=== PATIENT | female | born 1965 | race Caucasian/White ===

== ENCOUNTER 2017-08-18 00:34 | Observation (INO) ==
--- NOTE | 2017-08-18 01:06 | Emergency Department Note ---
Disposition Clinical Impression: Dehydration, Gastroenteritis, SHANIKA (acute kidney injury), Metabolic alkalosis, Hypokalemia Disposition: Admitted As Inpatient Condition: Good Referrals: Rina Fuentes CNP [Primary Care Provider] - Forms: ED Satisfaction Letter Nausea/Vomiting/Diarrhea HPI - General Chief complaint: ED Nausea/Vomiting/Diarrhea Stated complaint: vomiting Time Seen by Provider: 08/18/17 00:52 Source: patient Mode of arrival: private vehicle Limitations: no limitations Nursing Notes Reviewed: Yes Vital Signs Reviewed: Yes - History of Present Illness HPI Narrative: Patient presents to the ED complaining of nausea, vomiting, back pain and headache. States vomiting first started 2 days ago and lasted for approximately 24 hours, ending around noon yesterday. States she was vomiting up to 2 times an hour during this time. No diarrhea. Denies any blood in her vomit. States she has also had some intermittent upper abdominal pain that is aching in nature since she started vomiting. She rates it a 3 out of 10. This evening the vomiting started again around midnight and she has had 2 episodes which is what brought her into the ED. States that she fell yesterday around 6: 30, landing on her buttocks and has had back pain in her sacrum since that time. States she has felt generally weak and her legs simply gave way. There was no antecedent lightheadedness, dizziness, chest pain or shortness of breath. She did not strike her head or lose consciousness in the fall. No numbness, tingling or weakness in her legs. She had a normal bowel movement today. No URI symptoms. No urinary symptoms. No recent travel or sick contacts. States her blood sugar was 354 at 7 PM. She has not taken any of her meds today because of her vomiting. - Related Data Home Medications Medication Instructions Recorded Confirmed Atorvastatin [Lipitor] 10 mg PO HS 01/01/17 08/18/17 Glimepiride [Amaryl] 2 mg PO 0800 01/01/17 08/18/17 Insulin Glargine/Lixisenatide 45 unit SQ DAILY 01/01/17 08/18/17 [Soliqua 100 Unit-33 Mcg/ml Pen] Lisinopril [Zestril] 20 mg PO DAILY 01/01/17 08/18/17 Allergies Allergy/AdvReac Type Severity Reaction Status Date / Time No Known Allergies Allergy Verified 01/01/17 08:36 Constitutional: Reports: weakness. Denies: fever, chills, weight change Eyes: Denies: eye pain, eye discharge, vision change ENT ED: Denies: ear pain, throat pain, dental pain, hearing loss, epistaxis, congestion, dysphagia Cardiovascular: Denies: chest pain, palpitations, dyspnea on exertion, edema, syncope Respiratory: Denies: cough, dyspnea, wheezes, hemoptysis, stridor Gastrointestinal: Reports: as per HPI, abdominal pain, nausea, vomiting. Denies : diarrhea, constipation, hematemesis, melena, hematochezia Genitourinary: Denies: dysuria, frequency, hematuria, discharge Musculoskeletal: Reports: back pain (sacrum). Denies: neck pain, arthralgia, myalgia Integumentary: Denies: rash, abrasion, lesions Neurological: Reports: headache. Denies: weakness, numbness, paresthesias, confusion, abnormal gait, vertigo Psychiatric: Denies: anxiety, depression, suicidal thoughts, homicidal thoughts , auditory hallucinations, visual hallucinations Endocrine: Denies: fatigue Hematological/Lymphatic: Denies: easy bleeding, easy bruising Allergic/Immunologic: Denies: facial swelling, urticaria Past Medical History - Past Medical History Medical history: Reports: CHF, diabetes, hypertension Surgical history: Reports: other Psychiatric history: Reports: no psych history - Social History Smoking Status: Former smoker Smokeless Tobacco Status: No Alcohol use: Reports: none Drug use: Reports: none Physical Exam - General Limitations: no limitations General appearance: alert, in no apparent distress - Head Head exam: atraumatic, normocephalic, normal inspection - Eye Eye exam: Present: normal appearance, PERRL, EOMI - ENT ENT exam: normal exam, normal oropharynx, mucous membranes moist - Neck Neck exam: Present: normal inspection, full ROM, trachea midline - Chest Chest inspection: Present: normal inspection, symmetric chest wall rise - Respiratory Respiratory exam: Present: normal lung sounds bilaterally - Cardiovascular Cardiovascular exam: Present: regular rate, normal rhythm, normal heart sounds - Abdominal Exam Abdominal exam: Present: soft, tenderness, normal bowel sounds. Absent: distention, guarding, rebound, rigidity Abdominal tenderness: Present: epigastrium, mild - Extremities Exam Extremities exam: Present: normal inspection, full ROM. Absent: tenderness, pedal edema - Back Exam Back exam: Present: normal inspection, full ROM, tenderness (midline sacrum). Absent: CVA tenderness (R), CVA tenderness (L) - Neurological Exam Neurological exam: Present: alert, oriented X3 - Psychiatric Psychiatric exam: Present: normal affect, normal mood - Skin Skin exam: Present: warm, dry, intact, normal color Course Course Narrative: Patient presents to the ED complaining of nausea, vomiting, headache and low back pain. She is afebrile on arrival, nontoxic in appearance and hemodynamically stable. Fingerstick glucose is 372. She does appear dry. Will give IV fluids and medication for nausea. I suspect a simple gastroenteritis but given her diabetes will check routine labs to evaluate for any electrolyte abnormalities or signs of DKA. Will obtain x-ray of the sacrum to rule out any injury. Will give medication for pain. - Reevaluation(s) Reevaluation #1: Laboratory studies showed metabolic alkalosis, hypokalemia and acute kidney injury, all likely due to her excessive vomiting. There is not evidence of DKA. Will give potassium supplementation. Patient has not vomited but does still complain of nausea. We will give Phenergan. Awaiting x-ray results. Will check a lactic acid. Patient will require admission for continued management of her electrolyte abnormalities and SHANIKA. Will check lactic acid to determine if patient is appropriate for this facility or will require transfer. Reevaluation #2: X-ray of sacrum and coccyx is negative. Patient has been given Phenergan but still complains of nausea. She has not had any vomiting. Lactic acid is not elevated. Repeat glucose is 326. I spoke to the hospitalist on-call, Dr. Chandra , who has agreed to admit the patient. We will continue IV fluids and start back on insulin. Vital Signs Temperature 97.2 F L 08/18/17 00:36 Pulse Rate 105 08/18/17 00:36 Respiratory Rate 18 08/18/17 00:36 Blood Pressure 156/79 08/18/17 00:36 O2 Sat by Pulse Oximetry 99 08/18/17 00:36 Temperature 97.2 F L 08/18/17 00:36 Pulse Rate 92 08/18/17 03:08 Respiratory Rate 18 08/18/17 03:08 Blood Pressure 172/86 08/18/17 03:08 O2 Sat by Pulse Oximetry 97 08/18/17 03:08 Oxygen Delivery Oxygen Delivery Room Air Nausea/Vomiting/Diarrhea - Differential Diagnosis Likely: gastroenteritis, dehydration - Medical Records Medical records reviewed: Yes I reviewed the patient's medical records. - Lab Data Lab results reviewed: Yes I reviewed the patient's lab results. Result diagrams: 08/18/17 01:30 08/18/17 01:30 Lab Results 08/18/17 08/18/17 08/18/17 Range/Units 01:30 01:30 01:30 WBC 17.9 H (4.3-11.1) K/mcL RBC 4.37 (3.82-4.97) M/mcL Hgb 13.7 (11.5-15.4) g/dL Hct 38.4 (35.3-44.9) % MCV 87.9 (83.0-100.0) fL MCH 31.4 (28.0-33.3) pg MCHC 35.7 H (31.6-35.5) g/dL RDW 13.6 (11.5-14.5) % Plt Count 512 H (140-400) K/mcL MPV 10.6 (9.4-12.4) fL Immature Gran % 1.5 (0-4) % Seg Neutrophils % 79.2 % Lymphocytes % 9.2 % Monocytes % 9.7 % Eosinophils % 0.1 % Basophils % 0.3 % Neutrophils # 14.2 H (1.6-8.9) K/mcL Lymphocytes # 1.7 (0.6-4.6) K/mcL Monocytes # 1.7 H (0.0-1.3) K/mcL Eosinophils # 0.0 (0.0-0.6) K/mcL Basophils # 0.1 (0.0-0.2) K/mcL VBG pH (7.32-7.42) pH Units VBG pCO2 (41-51) mmHg VBG pO2 (25-50) mmHg VBG HCO3 (21-27) mEq/L Sodium 134 L (136-145) mEq/L Potassium 2.7 L (3.5-4.5) mEq/L Chloride 89 L (98-109) mEq/L Carbon Dioxide 27 (19-29) mEq/L BUN 33 H (7-20) mg/dL Creatinine 2.16 H (0.57-1.11) mg/dL Est GFR ( Amer) 29 L (> 60) Est GFR (Non-Af Amer) 24 L (> 60) BUN/Creatinine Ratio 15 (6-26) Glucose 386 H (70-99) mg/dL Calculated Osmolality 301 H (280-300) Lactic Acid (0.5-2.2) mmol/L Calcium 10.6 (8.6-10.8) mg/dL Total Bilirubin 1.0 (0.2-1.2) mg/dL AST 10 (5-34) Units/L ALT 11 (0-55) Units/L Alkaline Phosphatase 92 (38-126) Units/L Serum Total Protein 8.9 H (6.0-8.3) g/dL Albumin 4.3 (3.5-5.0) g/dL Globulin 4.6 H (2.4-3.5) g/dL Albumin/Globulin Ratio 0.9 L (1.1-2.2) Lipase 36 (8-78) Units/L Beta-Hydroxybutyric Acd 0.45 H (0.02-0.27) mmol/L 08/18/17 08/18/17 Range/Units 01:34 02:33 WBC (4.3-11.1) K/mcL RBC (3.82-4.97) M/mcL Hgb (11.5-15.4) g/dL Hct (35.3-44.9) % MCV (83.0-100.0) fL MCH (28.0-33.3) pg MCHC (31.6-35.5) g/dL RDW (11.5-14.5) % Plt Count (140-400) K/mcL MPV (9.4-12.4) fL Immature Gran % (0-4) % Seg Neutrophils % % Lymphocytes % % Monocytes % % Eosinophils % % Basophils % % Neutrophils # (1.6-8.9) K/mcL Lymphocytes # (0.6-4.6) K/mcL Monocytes # (0.0-1.3) K/mcL Eosinophils # (0.0-0.6) K/mcL Basophils # (0.0-0.2) K/mcL VBG pH 7.56 H (7.32-7.42) pH Units VBG pCO2 35 L (41-51) mmHg VBG pO2 30 (25-50) mmHg VBG HCO3 31 H (21-27) mEq/L Sodium (136-145) mEq/L Potassium (3.5-4.5) mEq/L Chloride (98-109) mEq/L Carbon Dioxide (19-29) mEq/L BUN (7-20) mg/dL Creatinine (0.57-1.11) mg/dL Est GFR ( Amer) (> 60) Est GFR (Non-Af Amer) (> 60) BUN/Creatinine Ratio (6-26) Glucose (70-99) mg/dL Calculated Osmolality (280-300) Lactic Acid 1.8 (0.5-2.2) mmol/L Calcium (8.6-10.8) mg/dL Total Bilirubin (0.2-1.2) mg/dL AST (5-34) Units/L ALT (0-55) Units/L Alkaline Phosphatase (38-126) Units/L Serum Total Protein (6.0-8.3) g/dL Albumin (3.5-5.0) g/dL Globulin (2.4-3.5) g/dL Albumin/Globulin Ratio (1.1-2.2) Lipase (8-78) Units/L Beta-Hydroxybutyric Acd (0.02-0.27) mmol/L - Radiology Data Radiology results reviewed: Yes I reviewed the patient's radiology results. ITS Impressions Sacrum and Coccyx X-Ray 08/18/17 01:34 IMPRESSION: No definite fracture. D/ / Chas Coto MD / Chas Coto MD Interpreting Provider: Chas Coto MD
[2017-08-18] MEDS ORDERED: Ondansetron 4 MG/2 ML VIAL IVP ONE (01:07)
[2017-08-18] MEDS ORDERED: 0.9 % Sodium Chloride 1,000 ML IVC ONE (01:07)
[2017-08-18] MEDS ORDERED: Ketorolac 30 MG/ML VIAL IVP ONE (01:34)
[2017-08-18 01:37] LABS: VBG HCO3 31 mEq/L (21-27); VBG PCO2 35 mmHg (41-51); VBG PH 7.56 pH Units (7.32-7.42); VBG PO2 30 mmHg (25-50)
[2017-08-18 02:08] LABS: Basophils # 0.1 K/mcL (0.0-0.2); Basophils % 0.3 %; Eosinophils % 0.1 %; Hematocrit 38.4 % (35.3-44.9); Hemoglobin 13.7 g/dL (11.5-15.4); Immature Granulocytes % 1.5 % (0-4); Lymphocytes # 1.7 K/mcL (0.6-4.6); Lymphocytes % 9.2 %; Mean Corpuscular HGB Conc 35.7 g/dL (31.6-35.5); Mean Corpuscular Hemoglobin 31.4 pg (28.0-33.3); Mean Corpuscular Volume 87.9 fL (83.0-100.0); Mean Platelet Volume 10.6 fL (9.4-12.4); Monocytes # 1.7 K/mcL (0.0-1.3); Monocytes % 9.7 %; Neutrophils # 14.2 K/mcL (1.6-8.9); Platelet Count 512 K/mcL (140-400); Red Blood Count 4.37 M/mcL (3.82-4.97); Red Cell Distribution Width 13.6 % (11.5-14.5); Segmented Neutrophils % 79.2 %
[2017-08-18 02:09] LABS: Albumin 4.3 g/dL (3.5-5.0); Albumin/Globulin Ratio 0.9 (1.1-2.2); Calcium 10.6 mg/dL (8.6-10.8); Globulin 4.6 g/dL (2.4-3.5); Potassium 2.7 mEq/L (3.5-4.5); Total Protein 8.9 g/dL (6.0-8.3)
[2017-08-18] MEDS ORDERED: 0.9 % Sodium Chloride 1,000 ML IVC SCH (02:30)
[2017-08-18] MEDS ORDERED: *HR* Promethazine 25 MG/ML VIAL IVP ONE (02:35)
[2017-08-18] MEDS ORDERED: *HR* Promethazine 25 MG/ML VIAL IVP PRN ×2 (03:20→03:44)
[2017-08-18] MEDS ORDERED: Naloxone 0.4 MG/ML INJ IVP PRN ×2 (03:20→03:44)
[2017-08-18] MEDS ORDERED: Insulin LISPRO 300 UNITS/3 ML VIAL SQ ONE ×4 (03:32→04:00)
[2017-08-18] MEDS ORDERED: Dextrose Gel 15 GM PO PRN ×2 (03:44)
[2017-08-18] MEDS ORDERED: D5% in Water 1,000 ML IVC PRN (03:44)
[2017-08-18] MEDS ORDERED: *HR* Dextrose 50 % in Water (Syg) 50 ML SYRINGE IVP PRN (03:44)
[2017-08-18] MEDS: 0.9 % Sodium Chloride 1,000 ML IVC SCH ×2 (04:32→12:43)
[2017-08-18] MEDS ORDERED: Ondansetron 4 MG/2 ML VIAL IVP PRN (05:24)
[2017-08-18] MEDS ORDERED: *HR* Glimepiride 2 MG TABLET PO SCH (08:00)
[2017-08-18] MEDS ORDERED: *HR* Promethazine 25 MG/ML VIAL IVP SCH (08:00)
[2017-08-18] MEDS: *HR* Promethazine 25 MG/ML VIAL IVP PRN ×2 (10:01→14:42)
[2017-08-18] MEDS: Insulin LISPRO 300 UNITS/3 ML VIAL SQ SCH ×3 (10:02→17:37)
[2017-08-18] MEDS: Lisinopril 20 MG TABLET PO SCH (10:02)
[2017-08-18 11:57] LABS: Bilirubin,Urine Small (Negative); Blood,Urine Large (Negative); Clarity,Urine Turbid (Clear); Color,Urine Amber (Yellow); Glucose,Urine (UA) >=1000 mg/dL (Normal); Ketones,Urine 15 mg/dL (Negative); Leukocyte Esterase,Urine Small (Negative); Nitrite,Urine Positive (Negative); Protein,Urine >=300 mg/dL (Neg-Trace); Specific Gravity,Urine >= 1.030 (1.010-1.025); Urobilinogen,Urine Normal (Normal)
[2017-08-18 12:07] LABS: Bacteria,Urine Many per hpf (None-Few); RBC,Urine TNTC per hpf (0-3); Squamous Epithelial Cell,Urine Few per lpf (None-Few); WBC,Urine TNTC per hpf (0-3)
[2017-08-18] MEDS: INSULIN GLARGINE SQ SCH (12:45)
[2017-08-18] MEDS: LIXISENATIDE SQ SCH (12:45)
[2017-08-18] MEDS: *HR* HYDROcodone/Acet 5/325 mg TABLET PO PRN ×2 (14:30→21:52)
--- NOTE | 2017-08-18 15:12 | Internal Med History&Physical ---
Date of Encounter: 08/18/17 Time of Encounter: 14:40 Assessment and Plan (1) Gastroenteritis Current visit: Yes Status: Acute She will be given IV fluids and prn antiemetics. Will recheck labs in a.m. (2) UTI (urinary tract infection) Current visit: Yes Status: Acute Will give Rocephin empirically with urine culture pending Qualifiers: Urinary tract infection type: site unspecified Hematuria presence: with hematuria Qualified Code(s): N39.0 - Urinary tract infection, site not specified; R31.9 - Hematuria, unspecified; R31.9 - Hematuria, unspecified (3) SHANIKA (acute kidney injury) Current visit: Yes Status: Acute Probably secondary to vomiting with dehydration. We will give IV fluids and recheck labs. (4) Hypokalemia Current visit: Yes Status: Acute Likely secondary to vomiting. We will give replacement potassium and recheck labs. (5) Hypertension Current visit: Yes Status: Chronic Continue Zestril Qualifiers: Hypertension type: essential hypertension Qualified Code(s): I10 - Essential (primary) hypertension (6) DM type 2 (diabetes mellitus, type 2) Current visit: Yes Status: Acute Continue Soliqua and monitor Accu-Cheks with SSI. 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 Paredes is a 52 year old female who came to emergency room stating she had onset of vomiting the afternoon of August 16. She stated she vomited at least 15 times without any evidence of hematemesis. She had progressive weakness and had a fall at home. When she did not seem improved by the following day she came to emergency room and was found to have hypokalemia and acute renal failure. She was admitted to [facility] floor for ongoing care needs. She denies abdominal pain, fever or diarrhea. She denies disorders of her liver gallbladder or exocrine pancreas. Past Med Surg Social Fam HX - Past Medical History Medical history: CHF, diabetes, hypertension Psychiatric history: no psych history - Past Surgical History Surgical History: other - Social History Smoking Status: Former smoker Smokeless Tobacco Status: No Alcohol use: none Drug use: none Internal Medicine - H&P: Meds Atorvastatin [Lipitor] 10 mg PO HS 01/01/17 [History] Glimepiride [Amaryl] 2 mg PO 0800 01/01/17 [History] Insulin Glargine/Lixisenatide [Soliqua 100 Unit-33 Mcg/ml Pen] 45 unit SQ DAILY 01/01/17 [History] Lisinopril [Zestril] 20 mg PO DAILY 01/01/17 [History] 3 Allergy/AdvReac Type Severity Reaction Status Date / Time No Known Allergies Allergy Verified 01/01/17 08:36 All Systems PM: A 10-system review of systems was performed and is negative for pertinent findings except as documented above in the HPI. Review of systems: Gen.: She states her weight has been stable past few months Cardiovascular: She has history of hypertension but denies VT heart failure angina DVT or pulmonary embolus Respiratory: She states she smoked for approximately one month in her life. She has no known chronic lung disease. GI: She denies disorders of her liver gallbladder or exocrine pancreas : She denies hematuria or dysuria or kidney stones. She has had a right ureteral stent placed. 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 She has had 3 C-sections. Neurologic: She denies large distribution strokes or seizures. Endocrine: She was diagnosed with DM 2 approximately December 2011. Hemoglobin A1c was greater than 14.1% on 11/21/2016. She has hyperlipidemia but no known thyroid disease Hematology/oncology: She denies blood disorders cancers or anemia Psychiatric: She denies anxiety depression or other mental health issues Musk skeletal: She has DJD but denies gout or other bone joint or muscle disorders. - Constitutional Vitals: Temp Pulse Resp BP Pulse Ox 98.1 F 98 16 192/90 99 08/18/17 10:00 08/18/17 10:00 08/18/17 10:00 08/18/17 10:00 08/18/17 10:00 Exam: Gen.: She is a well-developed well-nourished female lying comfortably in bed who appears in no acute distress HEENT: Head is atraumatic and normocephalic. Eyes: EOMI. There is no scleral icterus. Mouth: Mucosa is moist. Neck: Supple and nontender. There is no thyromegaly or adenopathy noted. Heart: Regular without murmurs gallops or ectopics Lungs: No wheezes or crackles are heard. Abdomen: Soft and nontender. No masses or guarding noted. Extremities: There is no cyanosis edema or clubbing noted. Dorsalis pedis and posttibial pulses are 1-2 over 2 bilaterally. Neurologic: Mental status: She is talkative and a good historian. Cranial nerves: Smile is symmetric. Forehead wrinkles bilaterally. Tongue protrudes midline. EOMI. Motor: There is no pronator drift. Cerebellar: Finger to nose is intact bilaterally. Skin: Warm and dry Internal Med - H&P Results - Labs CBC & Chem 7: 08/18/17 01:30 08/18/17 01:30 Labs: Urine 08/18/17 Range/Units 11:50 Urine Color Yari A (Yellow) Urine Clarity Turbid A (Clear) Urine pH 6.0 (5.0-8.0) pH Units Ur Specific [place] >= 1.030 H (1.010-1.025) Urine Protein >=300 H (Neg-Trace) mg/dL Urine Glucose (UA) >=1000 H (Normal) mg/dL - VTE Reasons for not Prescribing Prophylaxis: Treatment not Indicated - Low risk for VTE
[2017-08-18 15:52] LABS: BUN/Creatinine Ratio 33 (6-26); Blood Urea Nitrogen 33 mg/dL (7-20); Calcium 9.7 mg/dL (8.6-10.8); Carbon Dioxide 27 mEq/L (19-29); Chloride 96 mEq/L (98-109); Glucose 211 mg/dL (70-99); Magnesium 1.7 mg/dL (1.6-2.6); Osmolality,Calculated 296 (280-300); Potassium 2.8 mEq/L (3.5-4.5); Sodium 136 mEq/L (136-145); eGFR For African Americans > 60 (> 60); eGFR For Non-African Americans 58 (> 60)
[2017-08-18] MEDS: D5% in 0.45% NACL w KCl 20 MEQ/1,000 ML MLS IVC SCH (17:30)
[2017-08-18] MEDS ORDERED: Insulin LISPRO 300 UNITS/3 ML VIAL SQ SCH (21:00)
[2017-08-18] MEDS: Lactobacillus 1 EACH CAP.SPRINK PO SCH (21:52)
[2017-08-19] MEDS: *HR* HYDROcodone/Acet 5/325 mg TABLET PO PRN ×2 (01:59→09:49)
[2017-08-19] MEDS: D5% in 0.45% NACL w KCl 20 MEQ/1,000 ML MLS IVC SCH (04:37)
[2017-08-19] MEDS: Insulin LISPRO 300 UNITS/3 ML VIAL SQ SCH (09:35)
[2017-08-19] MEDS: Lactobacillus 1 EACH CAP.SPRINK PO SCH (09:37)
[2017-08-19] MEDS: Lisinopril 20 MG TABLET PO SCH (09:37)
[2017-08-19] MEDS: LIXISENATIDE SQ SCH (09:37)
[2017-08-19] MEDS: INSULIN GLARGINE SQ SCH (09:37)
[2017-08-19 09:43] VITALS: BP 169/89
[2017-08-19 10:13] LABS: Beta-Hydroxybutyric Acid 0.44 mmol/L (0.02-0.27)
[2017-08-19 10:22] LABS: Basophils % 0.3 %; Eosinophils % 0.3 %; Hematocrit 36.1 % (35.3-44.9); Hemoglobin 12.7 g/dL (11.5-15.4); Immature Granulocytes % 0.4 % (0-4); Lymphocytes # 2.2 K/mcL (0.6-4.6); Lymphocytes % 18.2 %; Mean Corpuscular HGB Conc 35.2 g/dL (31.6-35.5); Mean Corpuscular Hemoglobin 31.6 pg (28.0-33.3); Mean Corpuscular Volume 89.8 fL (83.0-100.0); Mean Platelet Volume 10.8 fL (9.4-12.4); Monocytes % 7.7 %; Platelet Count 427 K/mcL (140-400); Red Blood Count 4.02 M/mcL (3.82-4.97); Red Cell Distribution Width 13.6 % (11.5-14.5); Segmented Neutrophils % 73.1 %
[2017-08-19 10:23] LABS: Alanine Aminotransferase 18 Units/L (0-55); Albumin 3.4 g/dL (3.5-5.0); Albumin/Globulin Ratio 0.9 (1.1-2.2); Alkaline Phosphatase 71 Units/L (38-126); Aspartate Amino Transferase 18 Units/L (5-34); BUN/Creatinine Ratio 30 (6-26); Bilirubin,Total 0.9 mg/dL (0.2-1.2); Blood Urea Nitrogen 22 mg/dL (7-20); Calcium 9.3 mg/dL (8.6-10.8); Carbon Dioxide 28 mEq/L (19-29); Chloride 95 mEq/L (98-109); Globulin 3.9 g/dL (2.4-3.5); Glucose 241 mg/dL (70-99); Osmolality,Calculated 285 (280-300); Potassium 3.3 mEq/L (3.5-4.5); Total Protein 7.3 g/dL (6.0-8.3); eGFR For African Americans > 60 (> 60); eGFR For Non-African Americans > 60 (> 60)
[2017-08-19 10:28] LABS: Sodium 132 mEq/L (136-145)
--- NOTE | 2017-08-19 10:54 | Discharge Summary ---
Date of Encounter: 08/19/17 Time of Encounter: 10:40 - Discharge Diagnosis (1) Gastroenteritis Priority: Primary Status: Acute (2) UTI (urinary tract infection) Priority: Secondary Status: Acute Qualifiers: Urinary tract infection type: site unspecified Hematuria presence: with hematuria Qualified Code(s): N39.0 - Urinary tract infection, site not specified; R31.9 - Hematuria, unspecified; R31.9 - Hematuria, unspecified (3) SHANIKA (acute kidney injury) Priority: Secondary Status: Resolved (4) Hypokalemia Priority: Secondary Status: Acute (5) Hypertension Priority: Secondary Status: Chronic Qualifiers: Hypertension type: essential hypertension Qualified Code(s): I10 - Essential (primary) hypertension (6) DM type 2 (diabetes mellitus, type 2) Priority: Secondary Status: Chronic Qualifiers: Diabetes mellitus complication status: with unspecified complications Diabetes mellitus [facility] insulin use: with manager long term care use Qualified Code(s) : E11.8 - Type 2 diabetes mellitus with unspecified complications; Z79.4 - supervisor intermediates (current) use of insulin; Z79.4 - nursing home (current) use of insulin; Z79.4 - nursing home (current) use of insulin; Z79.4 - nursing home (current) use of insulin - Discharge Medications Prescriptions: Lactobacillus [Culturelle] 1 each PO BID #4 cap.sprink levoFLOXacin [Levaquin] 500 mg PO DAILY #2 tablet Potassium Chloride [K-Tab ER] 20 meq PO BID #4 tablet.er Home Medications: Atorvastatin [Lipitor] 10 mg PO HS 01/01/17 [History] Glimepiride [Amaryl] 2 mg PO 0800 01/01/17 [History] Insulin Glargine/Lixisenatide [Soliqua 100 Unit-33 Mcg/ml Pen] 45 unit SQ DAILY 01/01/17 [History] Lisinopril [Zestril] 20 mg PO DAILY 01/01/17 [History] Lactobacillus [Culturelle] 1 each PO BID #4 cap.sprink 08/19/17 [Rx] Potassium Chloride [K-Tab ER] 20 meq PO BID #4 tablet.er 08/19/17 [Rx] levoFLOXacin [Levaquin] 500 mg PO DAILY #2 tablet 08/19/17 [Rx] Allergies/Adverse Reactions: 3 Allergy/AdvReac Type Severity Reaction Status Date / Time No Known Allergies Allergy Verified 01/01/17 08:36 Date of admission: 08/18/17 03:30 Primary care physician: Rina Fuentes - Patient Status Disposition: Home, Self-Care Condition: Good Functional capacity at discharge: independent ambulation Overall status at discharge: patient is progressing back to baseline - Discharge Instructions Follow Up With: Rina Fuentes CNP [Primary Care Provider] - 1 week - Diet and Activity Activity: resume usual activities as tolerated Diet: advance to your usual diet Hospital course: Ms. Paredes is a 52 year old female who came to emergency room stating she had onset of vomiting the afternoon of August 16. She stated she vomited at least 15 times without any evidence of hematemesis. She had progressive weakness and had a fall at home. When she did not seem improved by the following day she came to emergency room and was found to have hypokalemia and acute renal failure. She was admitted to [facility] for ongoing care needs. Initial orders were written by the emergency room physician. I saw her on August 18 and performed a history and physical. She was started on IV fluids and prn antiemetics. She had no vomiting the last 24 hours of hospitalization and was consuming adequate amounts of food and fluid. Azotemia resolved with BUN and creatinine decreasing to 22 and 0.73 respectively on the day of discharge with estimated GFR greater than 60. Supplemental potassium was given and potassium level lilliam to 3.3 by the day of discharge. She will continue with oral potassium 20 mEq twice a day for 2 additional days at home. WBC improved to 12.3 on the day of discharge with normalization of differential. She will continue with antibiotic and probiotics for 2 additional days after discharge for possible UTI. Urine culture results are pending at time of discharge. She will follow with her PCP Rina Fuentes CNP within 1 week. - Time Spent with Patient Total time spent providing and/or coordinating discharge services: - Constitutional Vitals: Temp Pulse Resp BP Pulse Ox 98.2 F 94 17 169/89 99 08/19/17 07:51 08/19/17 07:51 08/19/17 07:51 08/19/17 07:51 08/19/17 07:51 - VTE Reasons for not Prescribing Prophylaxis: Treatment not Indicated - Low risk for VTE
== END 2017-08-19 11:30 | disposition home or self-care (01) ==
LOC: INPPIK 00:34 → EMEROOPIK 00:34 → INPPIK 03:57
PROVIDERS: ADMIT Student in an Organized Health Care Education/Training Program; ATTEND Internal Medicine